=== PATIENT | male | born 1980 | race Caucasian/White ===

== ENCOUNTER 2016-10-12 17:43 | Emergency (ER) | payer OTHER ==
[2016-10-12] MEDS ORDERED: ACETAMINOPHEN 500 MG TAB PO ONE ×2 (17:58→17:59)
[2016-10-12] MEDS ORDERED: AZITHROMYCIN 250 MG TAB PO ONE (17:59)
--- NOTE | 2016-10-12 18:08 | EDPHY ---
H & P Stated Complaint: FEVER, SORE THROAT BODY ACHES SINCE LAST NIGHT Time Seen by Provider: 10/12/16 17:55 HPI/ROS: CHIEF COMPLAINT: Sore throat, fever HISTORY OF PRESENT ILLNESS: The patient is a 35-year-old man who comes to the emergency department with his family complaining was strep throat and fevers up to 105 degrees at home. Also body aches. His symptoms have been present for 24 hours. No abdominal pain, chest pain, shortness of breath vomiting or diarrhea. No sick contacts. Mild sinus congestion REVIEW OF SYSTEMS: Constitutional: See HPI EENTM: See HPI Respiratory: denies: cough, shortness of breath Cardiac: denies: chest pain, irregular heart rate, lightheadedness, palpitations Gastrointestinal/Abdominal: denies: abdominal pain, diarrhea, nausea, vomiting, blood streaked stools Genitourinary: denies: dysuria, frequency, hematuria, pain Musculoskeletal: denies: joint pain, muscle pain Skin: denies: lesions, rash, jaundice, bruising Neurological: denies: headache, numbness, paresthesia, tingling, dizziness, weakness Hematologic/Lymphatic: denies: blood clots, easy bleeding, easy bruising Immunologic/allergic: denies: HIV/AIDS, transplant EXAM: GENERAL: Well-appearing, well-nourished and in no acute distress. HEAD: Atraumatic, normocephalic. EYES: Pupils equal round and reactive to light, extraocular movements intact, sclera anicteric, conjunctiva are normal. ENT: Purulent erythematous tonsils, no visible abscess. Effusions behind both tympanic membranes. Sinus congestion. NECK: Normal range of motion, supple without lymphadenopathy or JVD. LUNGS: Breath sounds clear to auscultation bilaterally and equal. No wheezes rales or rhonchi. HEART: Regular rate and rhythm without murmurs, rubs or gallops. ABDOMEN: Soft, nontender, normoactive bowel sounds. No guarding, no rebound. No masses appreciated. BACK: No CVA tenderness, no spinal tenderness, step-offs or deformities EXTREMITIES: Normal range of motion, no pitting or edema. No clubbing or cyanosis. NEUROLOGICAL: Cranial nerves II through XII grossly intact. Normal speech, normal gait. 5/5 strength, normal movement in all extremities, normal sensation PSYCH: Normal mood, normal affect. SKIN: Warm, dry, normal turgor, no visible rashes or lesions. Source: Patient Exam Limitations: No limitations - Personal History Current Tetanus Diphtheria and Acellular Pertussis (TDAP): Yes Tetanus Vaccine Date: < 10 YEARS - Medical/Surgical History Hx Asthma: No Hx Chronic Respiratory Disease: No Hx Diabetes: No Hx Cardiac Disease: No Hx Renal Disease: No Hx Cirrhosis: No Hx Alcoholism: No Hx HIV/AIDS: No Hx Splenectomy or Spleen Trauma: No Other PMH: HEART MURMER - Family History Significant Family History: No pertinent family hx - Social History Smoking Status: Never smoked Alcohol Use: Sober Drug Use: None Constitutional: Initial Vital Signs Temperature (C) 39.4 C H 10/12/16 17:46 Heart Rate 113 H 10/12/16 17:46 Respiratory Rate 16 10/12/16 17:46 Blood Pressure 121/69 H 10/12/16 17:46 O2 Sat (%) 91 L 10/12/16 17:46 O2 Delivery Mode Room Air Allergies/Adverse Reactions: No Known Allergies Allergy (Unverified 10/12/16 17:50) Home Medications: Medication Instructions Recorded AZITHROMYCIN [Z-PACK] 250 mg PO DAILY #4 tab 10/12/16 ZYRTEC 10/12/16 Medical Decision Making ED Course/Re-evaluation: Patient meets all criteria for strep throat. I will start him on azithromycin. He declined IM penicillin. Will also treat him with Tylenol for fever control and have encouraged fluids. He is happy with this plan and declines further workup or observation. Differential Diagnosis: Partial list of the Differential diagnosis considered include but were not limited to; strep throat, peritonsillar abscess, mononucleosis and although unlikely based on the history and physical exam, I also considered fall pneumonia, influenza, meningitis. I discussed these differential diagnoses and the plan with the patient as well as the usual and expected course. The patient understands that the diagnosis is provisional and that in medicine we are not always correct and that further workup is often warranted. Usual and customary warnings were given. All of the patient's questions were answered. The patient was instructed to return to the emergency department should the symptoms at all worsen or return, otherwise to followup with the physician as we discussed. - Data Points Laboratory Results: 10/12/16 18:05 Group A Strep Screen POSITIVE H (NEGATIVE) Medications Given: Discontinued Medications Acetaminophen (Tylenol) 1,000 mg PO EDNOW ONE Stop: 10/12/16 17:59 Last Admin: 10/12/16 18:10 Dose: Not Given Acetaminophen (Tylenol) 1,000 mg PO EDNOW ONE Stop: 10/12/16 18:00 Last Admin: 10/12/16 18:05 Dose: 1,000 mg Azithromycin (Zithromax) 500 mg PO EDNOW ONE PRN Reason: Protocol Stop: 10/12/16 18:00 Last Admin: 10/12/16 18:05 Dose: 500 mg Departure - Departure Disposition: Home, Routine, Self-Care Clinical Impression: Strep throat Condition: Fair Instructions: Strep Throat (ED) Referrals: Eladia Vyas MD [Medical Doctor] - As per Instructions Prescriptions: AZITHROMYCIN [Z-PACK] 250 mg PO DAILY #4 tab
[2016-10-12 18:32] VITALS: BP 123/81; PULSE 104; RESP 15; TEMP 100; O2SAT 96
== END 2016-10-12 18:32 | disposition home or self-care (01) ==
DX: J02.0 Streptococcal pharyngitis (principal)